=== PATIENT | male | born 1975 | race Caucasian/White ===

== ENCOUNTER → 2022-04-19 | Outpatient (CLI) | payer BC | END | disposition home or self-care (01) | LOC: NPLAB 10:57 | PROVIDERS: ATTEND Nurse Practitioner Family | DX: U07.1 COVID-19 (principal) | CPT/HCPCS: 87637 ==

== ENCOUNTER → 2023-11-27 | Outpatient (CLI) | payer BC | END | disposition home or self-care (01) | LOC: RAD 16:42 | PROVIDERS: ATTEND Nurse Practitioner Family | DX: M77.52 Other enthesopathy of left foot and ankle (principal); M79.672 Pain in left foot; W10.8XXA Fall (on) (from) other stairs and steps, initial encounter; Y93.89 Activity, other specified; Y92.89 Other specified places as the place of occurrence of the external cause; Y99.8 Other external cause status | CPT/HCPCS: 73630-LT ==

== ENCOUNTER → 2024-07-06 | Outpatient (CLI) | payer BC | END | disposition home or self-care (01) | LOC: RAD 12:03 | PROVIDERS: ATTEND Nurse Practitioner Family | DX: R05.1 Acute cough (principal); R07.81 Pleurodynia; M51.34 Other intervertebral disc degeneration, thoracic region; M47.814 Spondylosis without myelopathy or radiculopathy, thoracic region; M19.012 Primary osteoarthritis, left shoulder | CPT/HCPCS: 71046; 71100-LT ==